=== PATIENT | female | born 2000 | race African-American/Black ===

== ENCOUNTER 2018-08-02 16:46 | Emergency (ER) | payer OTHER ==
[2018-08-02 18:15] LABS: BASOPHILS % (AUTO) 0.5 %; EOSINOPHILS # (AUTO) 0.1 10^3/uL (0.0-0.7); EOSINOPHILS % (AUTO) 1.4 %; HGB - HEMOGLOBIN 13.5 g/dL (12.0-16.0); LYMPHOCYTES # (AUTO) 2.1 10^3/uL (1.5-3.5); LYMPHOCYTES % (AUTO) 31.5 %; MEAN CORPUSCULAR HEMOGLOBIN 30.8 pg (27.0-31.0); MEAN CORPUSCULAR HGB CONC 34.9 g/dL (32.0-36.0); MEAN CORPUSCULAR VOLUME 88.4 fL (81.0-99.0); MEAN PLATELET VOLUME 7.7 fL (7.9-10.8); MONOCYTES # (AUTO) 0.5 10^3/uL (0.0-1.0); MONOCYTES % (AUTO) 7.6 %; NEUTROPHILS # (AUTO) 3.9 10^3/uL (1.5-6.6); PLT - PLATELET COUNT 296 10^3/uL (130-450); RED BLOOD COUNT 4.38 10^6/uL (4.20-5.40); RED CELL DISTRIBUTION WIDTH 12.7 % (12.0-15.0); WHITE BLOOD COUNT 6.6 x10^3/uL (4.8-10.8)
--- NOTE | 2018-08-02 18:22 | ED Physician Documentation ---
PD HPI ABD PAIN - Stated complaint Stated Complaint: LOW LT ABD PX/NAUSEA - Chief complaint Chief Complaint: Abd Pain - History obtained from History obtained from: Patient - History of Present Illness Timing - onset: How many days ago Timing - duration: Hours Timing - details: Abrupt onset, Constant Associated symptoms: Nausea. 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 HEENT: None Psych: None Musculoskeletal: None Derm: None - Past Surgical History Past Surgical History: No - Present Medications Home Medications: Ambulatory Orders Medication Instructions Recorded Confirmed Naproxen 375 mg PO BID #20 tablet 08/02/18 Tramadol HCl 50 mg PO Q6H PRN #20 tablet 08/02/18 - Allergies Allergies/Adverse Reactions: Allergies Allergy/AdvReac Type Severity Reaction Status Date / Time No Known Drug Allergies Allergy Verified 08/02/18 17:18 - Social History Does the pt smoke?: No Smoking Status: Never smoker Does the pt drink ETOH?: No Substance Use and Type: Marijuana - Immunizations Immunizations are current?: Yes - POLST Patient has POLST: No PD ED PE NORMAL - Vitals Vital signs reviewed: Yes - General General: Alert and oriented X 3, Well developed/nourished, Other (seems in marked discomfort due to left pelvic pain. ) - HEENT HEENT: Pharynx benign - Neck Neck: Supple, no meningeal sign - Cardiac Cardiac: RRR, No murmur - Respiratory Respiratory: Clear bilaterally - Abdomen Abdomen: Soft, Non tender, Non distended - Female Female : Deferred - Rectal Rectal: Deferred - Back Back: No CVA TTP - Derm Derm: Normal color, Warm and dry Results - Vitals Vitals: Vital Signs - 24 hr 08/02/18 17:13 Temperature 37 C Heart Rate 72 Respiratory 20 Rate Blood Pressure 116/58 L O2 Saturation 99 Oxygen O2 Source Room air - Labs Labs: Laboratory Tests 08/02/18 18:08 WBC 6.6 RBC 4.38 Hgb 13.5 Hct 38.7 MCV 88.4 MCH 30.8 MCHC 34.9 RDW 12.7 Plt Count 296 MPV 7.7 L Neut # (Auto) 3.9 Lymph # (Auto) 2.1 Sanborn # (Auto) 0.5 Eos # (Auto) 0.1 Baso # (Auto) 0.0 Absolute Nucleated RBC 0.01 Nucleated RBC % 0.2 - Rads (name of study) pelvic CT Radiology: Prelim report reviewed (no acute process seen................... ............................) PD MEDICAL DECISION MAKING - ED course Complexity details: reviewed results (pelvic CT done due to painfulness of U/s exam earlier an pain now. I am concerned about ruptured cyst or ovarian torsion subsequent to the mainulation of the U/S.), re-evaluated patient, d/w patient - Sepsis Event Vital Signs: Vital Signs - 24 hr 08/02/18 17:13 Temperature 37 C Heart Rate 72 Respiratory 20 Rate Blood Pressure 116/58 L O2 Saturation 99 Oxygen O2 Source Room air Departure - Departure Disposition: 01 Home, Self Care Clinical Impression: Pelvic pain Condition: Stable Record reviewed to determine appropriate education?: Yes Instructions: ED Pelvic Pain [facility] Follow-Up: GLADYS ARAGON [Primary Care Provider] - Prescriptions: Naproxen 375 mg PO BID #20 tablet Tramadol HCl 50 mg PO Q6H PRN #20 tablet PRN Reason: Pain Comments: Your CT appears normal without any signs of large cyst, bleeding, torsion. Presume you are having pain there from endometrial or scarring. You can use some naproxen or ibuprofen 2-3 times a day for anti-inflammatory and pain. Add Tylenol or tramadol if needed for worse pain. Follow-up with your FOOD BAGGING MACHINE OPERATOR as planned on follow-up for the ultrasound you had had. Discharge Date/Time: 08/02/18 22:17
[2018-08-02] MEDS ORDERED: MORPHINE 10 MG/ML VIAL IVP STA ×2 (18:45→20:26)
[2018-08-02] MEDS ORDERED: SODIUM CHLORIDE 0.9% 1,000 ML IV ONE (18:45)
[2018-08-02] MEDS ORDERED: KETOROLAC 60 MG/2 ML VIAL IVP STA (18:45)
[2018-08-02] MEDS ORDERED: ONDANSETRON 4 MG/2 ML VIAL IVP STA (18:46)
[2018-08-02] MEDS ORDERED: IOPAMIDOL-300 100 ML VIAL ONE (18:52)
[2018-08-02 19:20] LABS: HCG,QUALITATIVE BLOOD NEGATIVE
[2018-08-02 19:23] LABS: ALBUMIN 4.6 g/dL (3.2-5.5); ALBUMIN/GLOBULIN RATIO 1.3 (1.0-2.2); BILIRUBIN,TOTAL 0.4 mg/dL (0.2-1.0); CALCIUM 9.6 mg/dL (8.5-10.3); CREATININE 0.7 mg/dL (0.4-1.0); TOTAL PROTEIN 8.1 g/dL (6.7-8.2)
[2018-08-02 19:27] LABS: BILIRUBIN,URINE NEGATIVE (NEGATIVE); CLARITY,URINE CLEAR (CLEAR); GLUCOSE, URINE (UA) NEGATIVE (NEGATIVE); KETONES,URINE (UA) NEGATIVE (NEGATIVE); LEUKOCYTE ESTERASE, URINE NEGATIVE (NEGATIVE); NITRITE,URINE NEGATIVE (NEGATIVE); OCCULT BLOOD,URINE NEGATIVE (NEGATIVE); PROTEIN,URINE NEGATIVE (NEGATIVE); UROBILINOGEN,URINE 0.2 (NORMAL) E.U./dL (NORMAL)
[2018-08-02] MEDS ORDERED: IOPAMIDOL-300 100 ML VIAL IVP ONE (20:35)
[2018-08-02 20:36] VITALS: BP 136/85
--- NOTE | 2018-08-02 21:07 | CT Report ---
Reason: LLQ pain after U/S this AM; eval bleeding/torsion Procedure Date: 08/02/2018 Accession Number: [id number] / [id number] Procedure: CT - Pelvis W/ CPT Code: FULL RESULT: EXAM: CT PELVIS EXAM DATE: 08/02/2018 08:33 PM. CLINICAL HISTORY: Left lower quadrant pain after ultrasound this morning. COMPARISONS: None. TECHNIQUE: Routine helical CT imaging was performed through the pelvis. IV contrast: 100 mL Isovue-300. Enteric contrast: No. Reconstructions: Coronal and sagittal. In accordance with CT protocol optimization, one or more of the following dose reduction techniques were utilized for this exam: automated exposure control, adjustment of mA and/or KV based on patient size, or use of iterative reconstructive technique. FINDINGS: Peritoneal Cavity/Bowel: Normal. No free fluid, free air or adenopathy. No masses or acute inflammatory process. Appendix is normal. Pelvic Organs: Normal appearance of the ovaries. There is a tiny leiomyoma anteriorly within the uterine body. Uterus is otherwise without significant abnormality. Vasculature: No aneurysm. Bones: No significant abnormality. Other: None. IMPRESSION: No significant abnormality. RADIA
[2018-08-02] MEDS ORDERED: HYDROcod/ACET 5/325 Prepack 4 PO STA (21:31)
== END 2018-08-02 22:17 | disposition home or self-care (01) ==
LOC: ED 16:46
DX: R10.2 Pelvic and perineal pain (principal)
CPT/HCPCS: 36415; 72193; 80053; 81003; 83690; 84703; 85025; 96361; 96374; 96376; 99283; Q9967; 81001; 87086

== ENCOUNTER 2018-08-13 20:09 | Emergency (ER) | payer OTHER ==
[2018-08-13 21:00] LABS: BILIRUBIN,URINE NEGATIVE (NEGATIVE); GLUCOSE, URINE (UA) NEGATIVE (NEGATIVE); KETONES,URINE (UA) NEGATIVE (NEGATIVE); LEUKOCYTE ESTERASE, URINE NEGATIVE (NEGATIVE); NITRITE,URINE NEGATIVE (NEGATIVE); OCCULT BLOOD,URINE NEGATIVE (NEGATIVE); PH,URINE 6.5 PH (5.0-7.5); PROTEIN,URINE NEGATIVE (NEGATIVE); UROBILINOGEN,URINE 0.2 (NORMAL) E.U./dL (NORMAL)
[2018-08-13 21:04] LABS: CLARITY,URINE CLEAR (CLEAR); HCG UR QUAL NEGATIVE
--- NOTE | 2018-08-13 21:42 | ED Physician Documentation ---
PD HPI ABD PAIN - Stated complaint Stated Complaint: AB PX/VOMITING - Chief complaint Chief Complaint: Abd Pain - History obtained from History obtained from: Patient - History of Present Illness Timing - onset: How many hours ago (1), Today Timing - duration: Hours (1) Timing - details: Abrupt onset, Still present Quality: Cramping, Sharp, Pain Location: LLQ Radiation: Lower back Associated symptoms: Nausea, Vomiting. 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.) : denies: Dysuria, Frequency PD PAST MEDICAL HISTORY - Past Medical History Cardiovascular: None Respiratory: None Neuro: None Endocrine/Autoimmune: None GI: None 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 HEENT: None Psych: None Musculoskeletal: None Derm: None - Past Surgical History Past Surgical History: No - Present Medications Home Medications: Ambulatory Orders Medication Instructions Recorded Confirmed Naproxen 375 mg PO BID #20 tablet 08/02/18 Tramadol HCl 50 mg PO Q6H PRN #20 tablet 08/02/18 Naproxen 375 mg PO BID #20 tablet 08/13/18 Ondansetron Odt [Zofran] 4 mg TL Q6H PRN #15 tablet 08/13/18 Oxycodone HCl/Acetaminophen 1 each PO Q6H PRN #12 tablet 08/13/18 [Percocet 5-325 mg Tablet] - Allergies Allergies/Adverse Reactions: Allergies Allergy/AdvReac Type Severity Reaction Status Date / Time No Known Drug Allergies Allergy Verified 08/13/18 20:16 - Social History Does the pt smoke?: No Smoking Status: Never smoker Does the pt drink ETOH?: No - Immunizations Immunizations are current?: Yes - POLST Patient has POLST: No PD ED PE NORMAL - Vitals Vital signs reviewed: Yes - General General: Alert and oriented X 3, Well developed/nourished, Other (appears in significant pain. Active emesis on exam. ) - Neck Neck: Supple, no meningeal sign, No adenopathy - Cardiac Cardiac: RRR, No murmur - Respiratory Respiratory: Clear bilaterally - Abdomen Abdomen: Normal bowel sounds, Soft, Non distended, No organomegaly, Other (focally markedly tender LLQ with local guarding. No general guarding nor percussion tenderness. ) - Female Female : Deferred - Rectal Rectal: Deferred - Back Back: No CVA TTP - Derm Derm: Normal color, Warm and dry - Neuro Neuro: Alert and oriented X 3, No motor deficit, Normal speech Results - Vitals Vitals: Oxygen O2 Source Room air - Labs Labs: Laboratory Tests 08/13/18 20:50 Urine Color YELLOW Urine Clarity CLEAR Urine pH 6.5 Ur Specific [place]ger 1.025 Urine Protein NEGATIVE Urine Glucose (UA) NEGATIVE Urine Ketones NEGATIVE Urine Occult Blood NEGATIVE Urine Nitrite NEGATIVE Urine Bilirubin NEGATIVE Urine Urobilinogen 0.2 (NORMAL) Ur Leukocyte Esterase NEGATIVE Ur Microscopic Review NOT INDICATED Urine Culture Comments NOT INDICATED Urine HCG, Qual NEGATIVE - Rads (name of study) pelvic US Radiology: Prelim report reviewed (normal ovaries with good flow. Possible small fibroid anteriorly. ), EMP read contemporaneously PD MEDICAL DECISION MAKING - ED course Complexity details: reviewed old records (CT from recent ER visit showed no obvious kidney stones. ), reviewed results, considered differential, d/w patient Departure - Departure Disposition: 01 Home, Self Care Clinical Impression: Abdominal pain Qualifiers: Abdominal location: left lower quadrant Qualified Code(s): R10.32 - Left lower quadrant pain Vomiting Qualifiers: Vomiting type: unspecified Vomiting Intractability: non-intractable Nausea presence: with nausea Qualified Code(s): R11.2 - Nausea with vomiting, unspecified Condition: Stable Record reviewed to determine appropriate education?: Yes Instructions: ED Abdominal Pain Unkn Cause Follow-Up: GLADYS ARAGON [Primary Care Provider] - Prescriptions: Naproxen 375 mg PO BID #20 tablet Ondansetron Odt [Zofran] 4 mg TL Q6H PRN #15 tablet PRN Reason: Nausea / Vomiting Oxycodone HCl/Acetaminophen [Percocet 5-325 mg Tablet] 1 each PO Q6H PRN #12 tablet PRN Reason: Pain Comments: Your ultrasound appears normal here with good blood flow to the ovaries and no signs of internal bleeding. Your urine was without any signs of infection nor blood. The CT scan you had recently did not show any cysts obvious stones in the kidney or so and so this would not be a ureteral stone at this time. Consider possibilities of endometriosis or just painful ovarian pain. We can treat this with anti-inflammatories as well as medicine for nausea and pain. Follow-up with gynecology tomorrow as planned. Discharge Date/Time: 08/14/18 00:15
[2018-08-13] MEDS ORDERED: SODIUM CHLORIDE 0.9% 1,000 ML IV ONE (21:52)
[2018-08-13] MEDS ORDERED: MORPHINE 10 MG/ML VIAL IVP STA (21:52)
[2018-08-13] MEDS ORDERED: ONDANSETRON 4 MG/2 ML VIAL IVP STA (21:52)
[2018-08-13] MEDS ORDERED: KETOROLAC 15 MG/ML VIAL IVP STA (21:52)
--- NOTE | 2018-08-13 23:12 | Ultrasound Report ---
Reason: LLQ abd pain abruptly today Procedure Date: 08/13/2018 Accession Number: [id number] / [id number] Procedure: US - Pelvic w/Transvag+Doppler Ltd CPT Code: FULL RESULT: EXAM: PELVIC ULTRASOUND EXAM DATE: 08/13/2018 10:14 PM. CLINICAL HISTORY: Left lower quadrant pain COMPARISON: None. TECHNIQUE: Realtime transabdominal pelvic scan performed to identify the uterus and adnexa and as an overview of other pelvic structures, followed by transvaginal scan to provide greater detail of the uterus and adnexa, with static image documentation. FINDINGS: Uterus: 7.1 x 3.0 x 4.4 cm, volume 49 cc. Anteverted position. Normal overall size and echotexture. Masses: 1. Possible anterior intramural fibroid measuring 1.5 x 1.1 x 2.1 cm. Endometrium: 2 mm. Normal. Cervix: Unremarkable. Right Ovary: 2.7 x 2.0 x 1.7 cm, volume 4.7 cc. Normal echotexture and blood flow. Left Ovary: 2.3 x 2.1 x 1.4 cm, volume 3.3 cc. Normal echotexture and blood flow. Free Fluid: None. Other: None. IMPRESSION: Possible anterior intramural fibroid, otherwise unremarkable pelvic ultrasound. RADIA
[2018-08-13] MEDS ORDERED: HYDROmorphone 1 MG/ML CARPUJECT IVP STA ×2 (23:13→23:38)
[2018-08-13] MEDS ORDERED: ONDANSETRON ODT 4 MG Prepack 2 TL PRN (23:17)
[2018-08-13] MEDS ORDERED: oxyCODONE/ACET 5/325 Prepack 4 PO STA (23:17)
[2018-08-13 23:26] VITALS: BP 135/92
== END 2018-08-14 00:15 | disposition home or self-care (01) ==
LOC: ED 20:09
DX: R10.32 Left lower quadrant pain (principal); R11.2 Nausea with vomiting, unspecified
CPT/HCPCS: 76830; 76856; 81003; 81025; 93976; 96361; 96374; 96375; 96376; 99283; J1170; 81001; 87086

== ENCOUNTER 2019-02-02 19:32 | Emergency (ER) | payer OTHER ==
[2019-02-02 19:40] VITALS: BP 126/88
[2019-02-02] MEDS ORDERED: IBUPROFEN 800 MG TABLET PO STA (19:59)
[2019-02-02] MEDS ORDERED: HYDROcod/ACETAM 5/325 MG TABLET PO STA (19:59)
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
== END 2019-02-02 20:08 | disposition home or self-care (01) ==
LOC: ED 19:32
DX: S16.1XXA Strain of muscle, fascia and tendon at neck level, initial encounter (principal); Y08.89XA Assault by other specified means, initial encounter
CPT/HCPCS: 99283; A9270

== ENCOUNTER 2019-04-12 18:21 | Emergency (ER) | payer OTHER ==
--- NOTE | 2019-04-12 20:21 | Ultrasound Report ---
Reason: vag bleeding; 10 wks EGA Procedure Date: 04/12/2019 Accession Number: [id number] / [id number] Procedure: US - OB First Trimester CPT Code: FULL RESULT: EXAM: FIRST TRIMESTER OBSTETRIC ULTRASOUND (Less than 11 weeks) EXAM DATE: 04/12/2019 07:14 PM. CLINICAL HISTORY: Vaginal bleeding; 10 weeks EGA. LMP: Unknown. COMPARISONS: None. TECHNIQUE: Transabdominal ultrasound examination with static image documentation. CLINICAL DATES: EGA 10 weeks 6 days with GEMMA 11/02/2019 based on patient report. ASSESSMENT: Gestational Sac: Single intrauterine. Mean gestational sac diameter: 45.6 mm = 10 weeks 1 day. Irregular shape of the gestational sac protruding into the lower uterine segment and cervix. Embryo: CRL (crown-rump length) 39.6 mm = 10 weeks 6 days. Cardiac activity: 180 beats per minute. Yolk sac: Not seen. Amniotic fluid: Not accurately assessed at this gestational age. Early placenta: Anterior. Other: No perigestational fluid collection demonstrated. MATERNAL STRUCTURES: Uterus: Anteverted. Unremarkable. Cervix: At onset of exam cervical length 2.4 cm, the internal cervical os opens with the cervix measuring 0.6 cm upon exam completion. Right Ovary/Adnexa: Not seen Left Ovary/Adnexa: The ovary measures 3.3 x 2.2 x 1.7 cm, volume 6.5 cc. 2.2 x 1.4 x 1.3 cm corpus luteal cyst. Free Fluid: None. Other: None. IMPRESSION: 1. Inevitable miscarriage at 10 weeks 6 days. RADIA The call report notification system was initiated by Dr. David Spann at 08:16 PM on 04/12/2019. The above call report findings were discussed with ED Physician by Dr. David Spann at 08:19 PM on 04/12/2019.
[2019-04-12] MEDS ORDERED: KETOROLAC 30 MG/ML VIAL IM STA (20:28)
[2019-04-12 20:36] VITALS: BP 137/71
--- NOTE | 2019-04-12 20:47 | ED Physician Documentation ---
PD HPI FEMALE - Stated complaint Stated Complaint: FEMALE /10 WK OB - Chief complaint Chief Complaint: Abd Pain - History obtained from History obtained from: Patient, Family - History of Present Illness Timing - onset: Today Timing - duration: Hours Timing - details: Abrupt onset Associated symptoms: Abdominal pain (cramping), Pelvic pain, Vaginal bleeding. 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 No: Prior vag delivery, Hysterectomy Similar symptoms before: Diagnosis (similar to previous miscarriages) Recently seen: Clinic - Additional information Additional information: Symptoms started with spotting this morning and then passing large clots this evening, worse just upon arrival to ED Review of Systems Ten Systems: 10 systems reviewed and negative Constitutional: denies: Fever Cardiac: denies: Chest pain / pressure, Palpitations Respiratory: reports: Reviewed and negative GI: reports: Abdominal Pain (cramping) : reports: Vaginal bleeding, Now EGA (10 wks) Skin: reports: Reviewed and negative Musculoskeletal: reports: Reviewed and negative Neurologic: reports: Other (felt lightheaded). 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: Endometriosis, Ovarian cysts, Miscarriage(s) HEENT: None Psych: None Musculoskeletal: None Derm: None - Past Surgical History Past Surgical History: No - Present Medications Home Medications: Ambulatory Orders Medication Instructions Recorded Confirmed Naproxen 375 mg PO BID #20 tablet 08/13/18 Ondansetron Odt [Zofran] 4 mg TL Q6H PRN #15 tablet 08/13/18 Etonogestrel [Nexplanon] 68 mg SQ 10/07/18 10/07/18 Hydrocodone/Acetaminophen 1 - 2 each PO Q6H PRN #14 tablet 10/07/18 [Hydrocodon-Acetaminophen 5-325] Sulfamethoxazole/Trimethoprim 1 each PO BID #10 tablet 10/07/18 [Sulfamethoxazole-Tmp Ds Tablet] Cyclobenzaprine [Flexeril] 10 mg PO TID PRN #20 tablet 02/02/19 Hydrocodone/Acetaminophen 1 - 2 each PO Q6H PRN #8 tablet 02/02/19 [Hydrocodon-Acetaminophen 5-325] Ibuprofen [Motrin] 800 mg PO Q8H PRN #30 tablet 02/02/19 - Allergies Allergies/Adverse Reactions: Allergies Allergy/AdvReac Type Severity Reaction Status Date / Time No Known Drug Allergies Allergy Verified 04/12/19 18:28 - Social History Does the pt smoke?: No Smoking Status: Never smoker Does the pt drink ETOH?: No Does the pt have substance abuse?: No - Immunizations Immunizations are current?: Yes - POLST Patient has POLST: No PD ED PE NORMAL - Vitals Vital signs reviewed: Yes - General General: Alert and oriented X 3, No acute distress, Well developed/nourished - HEENT HEENT: Atraumatic, Pharynx benign - Neck Neck: Supple, no meningeal sign, No JVD - Cardiac Cardiac: RRR - Respiratory Respiratory: No respiratory distress, Clear bilaterally - Abdomen Abdomen: Soft, Non tender, Non distended - Female Female : Certified Recreational Therapist present - Rectal Rectal: Deferred - Derm Derm: Normal color, Warm and dry, No rash - Extremities Extremities: No edema - Neuro Neuro: Alert and oriented X 3 Eye Opening: Spontaneous Motor: Obeys Commands Verbal: Oriented GCS Score: 15 - Psych Psych: Normal mood, Normal affect PD ED PE EXPANDED - Female Female : Vaginal Bleeding (moderate), Other (blood clots present ) Results - Vitals Vitals: Vital Signs - 24 hr 04/12/19 04/12/19 04/12/19 18:26 18:48 20:35 Temperature 37.5 C 36.7 C 37.2 C Heart Rate 146 H 75 77 Respiratory 18 17 16 Rate Blood Pressure 146/90 H 127/85 H 137/71 H O2 Saturation 99 100 98 Oxygen O2 Source Room air - Rads (name of study) abdominal US Radiology: Final report received (OB US - shows dilated cervix with gestational sac in cervix, likely inevitable ) PD MEDICAL DECISION MAKING - ED course Complexity details: reviewed results, re-evaluated patient, considered differential, d/w patient, d/w family ED course: ddx- threatend , ectopic , inevitable , missed , blighted ovum 18 y/o F 10 wks w/bleeding in - has an inevitable on US - given toradol here for pain. Pt is ambulating around the ED, no longer dizzy. Advised pt she can take ibuprofen as needed for pain and f/u with Obgyn. Pt given return precautions if fever, heavy bleeding with syncope, dizziness or new concerning symptoms. Departure - Departure Disposition: 01 Home, Self Care Clinical Impression: Inevitable Condition: Stable Record reviewed to determine appropriate education?: Yes Instructions: ED Miscarriage Incom Follow-Up: your, doctor [Other] Comments: You are having a miscarriage today. This is currently in process and thus called an "inevitable ". Take tylenol and ibuprofen as needed for pain. Forms: Activity restrictions
== END 2019-04-12 21:32 | disposition home or self-care (01) ==
LOC: ED 18:21
DX: O03.4 Incomplete spontaneous abortion without complication (principal)
CPT/HCPCS: 76801; 99283